=== PATIENT | female | born 2000 | race Caucasian/White ===

== ENCOUNTER 2020-04-26 15:24 | Emergency (ER) | payer OTHER ==
[~2020-04-26] VITALS: Ht 152.4 cm; Wt 83.6 kg
[2020-04-26] MEDS ORDERED: METH1CAP4 PO (15:35)
[2020-04-26] MEDS ORDERED: GUAN1TAB16 PO (15:35)
[2020-04-26] MEDS ORDERED: FLUO10CA16 PO (15:38)
[2020-04-26] MEDS ORDERED: [UNRECOGNIZED DRUG - CODE] PO (15:38)
[2020-04-26] MEDS ORDERED: GUAN1TAB19 PO (15:38)
[2020-04-26] MEDS ORDERED: LEXA1TAB2 PO (15:38)
[2020-04-26] MEDS ORDERED: ACETAMINOPHEN 500 MG TAB PO ONE (16:35)
[2020-04-26] MEDS ORDERED: DICYCLOMINE 10 MG CAP PO ONE (16:35)
[2020-04-26 16:57] LABS: BASO # 0.1 10^3/uL (0.0-0.2); BASO % 0.7 % (0.0-1.0); EOS # 0.1 10^3/uL (0.0-0.5); EOS % 0.9 % (0.0-3.0); HEMATOCRIT 45.7 % (36.0-47.0); HEMOGLOBIN 14.4 g/dl (12.0-15.5); LYMPH # 1.8 10^3/uL (1.5-5.0); LYMPH % 20.4 % (24.0-44.0); MEAN CORPUSCULAR HEMOGLOBIN 28.8 pg (27.0-33.0); MEAN CORPUSCULAR HGB CONC 31.5 g/dl (32.0-36.5); MEAN CORPUSCULAR VOLUME 91.4 fl (80.0-96.0); MONO # 0.6 10^3/uL (0.0-0.8); NEUTROPHILS # 6.4 10^3/uL (1.5-8.5); NEUTROPHILS % 70.6 % (36.0-66.0); PLATELET COUNT, AUTOMATED 418 10^3/uL (150-450)
--- NOTE | 2020-04-26 17:07 | REPVR ---
PROCEDURE INFORMATION: Exam: US Nonobstetric Pelvis; Complete Exam date and time: 04/26/2020 4:52 PM Age: 19 years old Clinical indication: Pelvic pain; Additional info: No tv pls, lower abd pain x 1wk TECHNIQUE: Imaging protocol: Transabdominal pelvic nonobstetric ultrasound. Complete exam. Real time ultrasound with image documentation. COMPARISON: No relevant prior studies available. FINDINGS: Uterus/cervix: 7.5 x 3.4 x 4.7 cm. Normal endometrial thickness, measuring approximately 6 mm. Right adnexa: Ovary obscured by overlying bowel gas. No adnexal mass. Left adnexa: Ovary obscured by overlying bowel gas. No adnexal mass. Intraperitoneal space: No intraperitoneal fluid. Urinary bladder: Normal. IMPRESSION: Limited examination due to obscuration of the ovaries by overlying bowel gas. Electronically signed by: Sagar Cardona On 04/26/2020 17:07:39 PM
[2020-04-26 17:18] LABS: ALBUMIN 3.7 GM/DL (3.2-5.2); ALT/SGPT 193 U/L (12-78); BILIRUBIN,DIRECT < 0.1 MG/DL (0.0-0.2); BILIRUBIN,TOTAL 0.2 MG/DL (0.2-1.0); LIPASE 31 U/L (73-393); TOTAL PROTEIN 7.6 GM/DL (6.4-8.2)
--- NOTE | 2020-04-26 18:01 | REP ---
INDICATION: lower abd pain x 1 wk COMPARISON: None. TECHNIQUE: Upright view of the chest with supine and upright views of the abdomen and pelvis. FINDINGS: Frontal upright view of the chest demonstrates no acute cardiopulmonary process or free air below the diaphragm to suspect pneumoperitoneum. Supine and upright views of the abdomen and pelvis demonstrate nonspecific bowel gas pattern without obstruction or perforation. Mild fecal stasis cannot be excluded and should be correlated with physical examination and history. No organomegaly. No abnormal calcifications. Skeletal structures normal for age. IMPRESSION: Nonspecific bowel gas pattern. <Electronically signed by Tommie Sanchez > 04/26/20 0729
[2020-04-26] MEDS ORDERED: SIME180C PO (18:40)
[2020-04-26 19:04] VITALS: BP 113/65
[2020-04-26 19:29] LABS: HEPATITIS B SURFACE ANTIGEN NEGATIVE (NEGATIVE)
[2020-04-26 19:56] LABS: HEPATITIS C VIRUS ABY INDEX < 0.0 INDEX (<0.8)
[2020-04-26 19:57] LABS: HEPATITIS B CORE ANTIBODY IGM NEGATIVE (NEGATIVE)
[2020-04-26 19:59] LABS: HEPATITIS A ANTIBODY IGM NEGATIVE (NEGATIVE)
== END 2020-04-26 19:07 | disposition home or self-care (01) ==
LOC: M ED 15:24
DX: R10.30 Lower abdominal pain, unspecified (principal); R79.89 Other specified abnormal findings of blood chemistry; R14.1 Gas pain; F41.9 Anxiety disorder, unspecified; Z91.030 Bee allergy status

== ENCOUNTER 2020-04-28 12:53 | Emergency (ER) | payer OTHER ==
[~2020-04-28] VITALS: Ht 152.4 cm; Wt 82.8 kg
[~2020-04-28 12:53] MED LIST: FLUO10CA16 PO; GUAN1TAB16 PO; GUAN1TAB19 PO; LEXA1TAB2 PO; METH1CAP4 PO; SIME180C PO; [UNRECOGNIZED DRUG - CODE] PO
[2020-04-28] MEDS ORDERED: DEXM1CAP16 PO (13:02)
[2020-04-28] MEDS ORDERED: NS 1,000 ML IV ONE (13:25)
[2020-04-28 14:05] LABS: BASO % 0.4 % (0.0-1.0); EOS # 0.1 10^3/uL (0.0-0.5); EOS % 1.1 % (0.0-3.0); HEMATOCRIT 44.5 % (36.0-47.0); HEMOGLOBIN 14.2 g/dl (12.0-15.5); LYMPH # 1.7 10^3/uL (1.5-5.0); LYMPH % 17.6 % (24.0-44.0); MEAN CORPUSCULAR HGB CONC 31.9 g/dl (32.0-36.5); MONO # 0.5 10^3/uL (0.0-0.8); MONO % 5.2 % (2.0-8.0); NEUTROPHILS # 7.3 10^3/uL (1.5-8.5); NEUTROPHILS % 75.3 % (36.0-66.0); PLATELET COUNT, AUTOMATED 398 10^3/uL (150-450); RED BLOOD COUNT 4.89 10^6/uL (4.00-5.40); WHITE BLOOD COUNT 9.6 10^3/uL (4.0-10.0)
[2020-04-28] MEDS ORDERED: ISOVUE-370 76% 100ML VIAL As Ordered ONE (14:24)
[2020-04-28 14:26] LABS: ALBUMIN 3.8 GM/DL (3.2-5.2); ALT/SGPT 173 U/L (12-78); BILIRUBIN,DIRECT < 0.1 MG/DL (0.0-0.2); BILIRUBIN,TOTAL 0.3 MG/DL (0.2-1.0); LIPASE 43 U/L (73-393); TOTAL PROTEIN 7.8 GM/DL (6.4-8.2)
--- NOTE | 2020-04-28 14:50 | REP ---
INDICATION: lower abd pain. COMPARISON: None TECHNIQUE: Axial contrast-enhanced images from the lung bases to the pubic symphysis using oral and 100 cc Isovue 370 intravenous contrast material. Coronal and sagittal reformations obtained. This CT examination was performed using the following dose reduction techniques: Automated exposure control, adjustment of mA and/or kv according to the patient's size, and the use of iterative reconstruction technique. FINDINGS: Lung bases are clear. Diffuse fatty infiltration to the liver noted without focal hepatic lesion. The spleen, pancreas, gallbladder, bilateral adrenal glands and kidneys are normal. The enteric system including stomach, small, and large bowel appears normal. No evidence for obstruction or acute inflammatory process. Normal terminal ileum and appendix are identified in the right lower quadrant. Small fat containing periumbilical hernia noted. Pelvis demonstrates normal bladder and age-appropriate uterus/adnexa. No ascites. No free air. No intraperitoneal or retroperitoneal adenopathy. Abdominal aorta and vasculature appear normal. Musculoskeletal structures are intact and without acute osseous abnormality. IMPRESSION: Hepatosteatosis. Otherwise normal contrast-enhanced CT of the abdomen and pelvis. <Electronically signed by Tommie Sanchez > 04/28/20 0721
[2020-04-28 16:49] VITALS: BP 120/72
--- NOTE | 2020-04-28 17:22 | ED PDOC ---
Post-Departure Follow-Up ct abd/p faxed to rajwinder malik for fu Carrie Larson MD Apr 28, 2020 17:22
== END 2020-04-28 16:52 | disposition home or self-care (01) ==
LOC: M ED 12:53
DX: K76.0 Fatty (change of) liver, not elsewhere classified (principal); E66.9 Obesity, unspecified; Z79.899 Other long term (current) drug therapy; Z91.030 Bee allergy status
CPT/HCPCS: 74177; 80047; 80076; 81001; 83690; 84702; 85025; 96360; 99284; Q9967

== ENCOUNTER 2020-06-03 23:09 | Emergency (ER) | payer OTHER ==
[~2020-06-03] VITALS: Ht 152.4 cm; Wt 79.0 kg
[~2020-06-03 23:09] MED LIST changes: +DEXM1CAP16 PO; -SIME180C PO; +SIME180C25 PO
[2020-06-04 01:31] LABS: HEMATOCRIT 45.8 % (36.0-47.0); HEMOGLOBIN 14.8 g/dl (12.0-15.5); MEAN CORPUSCULAR HEMOGLOBIN 29.7 pg (27.0-33.0); MEAN CORPUSCULAR HGB CONC 32.3 g/dl (32.0-36.5); MEAN CORPUSCULAR VOLUME 91.8 fl (80.0-96.0); PLATELET COUNT, AUTOMATED 413 10^3/uL (150-450); RED BLOOD COUNT 4.99 10^6/uL (4.00-5.40); WHITE BLOOD COUNT 8.7 10^3/uL (4.0-10.0)
[2020-06-04 02:16] LABS: ALBUMIN 3.8 GM/DL (3.2-5.2); ALT/SGPT 126 U/L (12-78); BILIRUBIN,TOTAL 0.5 MG/DL (0.2-1.0); BLOOD UREA NITROGEN 8 MG/DL (7-18); CALCIUM LEVEL 9.2 MG/DL (8.5-10.1); CARBON DIOXIDE LEVEL 28 MEQ/L (21-32); CHLORIDE LEVEL 107 MEQ/L (98-107); CREATININE FOR GFR 0.84 MG/DL (0.55-1.30); GLUCOSE, FASTING 93 MG/DL (70-100); POTASSIUM SERUM 4.8 MEQ/L (3.5-5.1); SODIUM LEVEL 141 MEQ/L (136-145); TOTAL PROTEIN 7.6 GM/DL (6.4-8.2)
[2020-06-04 02:31] VITALS: BP 112/69
== END 2020-06-04 02:33 | disposition home or self-care (01) ==
LOC: M ED 23:09
DX: R51.9 Headache, unspecified (principal); K76.0 Fatty (change of) liver, not elsewhere classified; R94.5 Abnormal results of liver function studies; Z79.899 Other long term (current) drug therapy; Z91.030 Bee allergy status

== ENCOUNTER 2022-05-02 11:56 | Emergency (ER) | payer OTHER ==
[~2022-05-02] VITALS: Ht 152.4 cm; Wt 97.8 kg
[~2022-05-02 11:56] MED LIST changes: -FLUO10CA16 PO; +FLUO10CA18 PO; +[UNRECOGNIZED DRUG - CODE] PO; -[UNRECOGNIZED DRUG - CODE] PO
[2022-05-02] MEDS ORDERED: ABIL1TAB13 PO (12:02)
[2022-05-02] MEDS ORDERED: ADDE20CA3 PO ×3 (12:02→15:01)
[2022-05-02 14:18] VITALS: BP 120/62
== END 2022-05-02 14:20 | disposition home or self-care (01) ==
LOC: M ED 11:56
DX: Z76.0 Encounter for issue of repeat prescription (principal); F90.9 Attention-deficit hyperactivity disorder, unspecified type; Z79.899 Other long term (current) drug therapy; Z91.030 Bee allergy status

== ENCOUNTER 2022-07-11 18:45 | Emergency (ER) | payer OTHER ==
[~2022-07-11] VITALS: Ht 152.4 cm; Wt 88.2 kg
[~2022-07-11 18:45] MED LIST changes: +ABIL1TAB13 PO; +ADDE20CA3 PO
[2022-07-11] MEDS ORDERED: ALBUTEROL SULFATE 2.5MG/0.5ML INH NEB SOLN NEB ONE (19:35)
[2022-07-11] MEDS ORDERED: predniSONE 20 MG TAB PO ONE (19:35)
[2022-07-11 20:40] LABS: RSV AMPLIFICATION NEGATIVE (NEGATIVE)
[2022-07-11] MEDS ORDERED: ALBU6.7H6 INH (21:14)
[2022-07-11] MEDS ORDERED: PRED20TA PO (21:14)
[2022-07-11 21:29] VITALS: BP 113/73
== END 2022-07-11 21:30 | disposition home or self-care (01) ==
LOC: M ED 18:45
DX: J45.901 Unspecified asthma with (acute) exacerbation (principal); F90.9 Attention-deficit hyperactivity disorder, unspecified type; Z79.899 Other long term (current) drug therapy; Z91.030 Bee allergy status
CPT/HCPCS: 71046; 87631; 94640; 99283; J7512

== ENCOUNTER 2022-07-14 20:37 | Emergency (ER) | payer OTHER ==
[~2022-07-14] VITALS: Ht 152.4 cm; Wt 89.9 kg
[~2022-07-14 20:37] MED LIST changes: +ALBU6.7H6 INH; +PRED20TA PO
[2022-07-15] MEDS ORDERED: IPRATROPIUM 0.5MG/ALBUTEROL 2.5MG INH SOL UD 3ML (DUONEB) NEB ONE (00:55)
[2022-07-15 02:36] VITALS: BP 129/74
== END 2022-07-15 02:44 | disposition home or self-care (01) ==
LOC: M ED 20:37
DX: J45.901 Unspecified asthma with (acute) exacerbation (principal); F90.9 Attention-deficit hyperactivity disorder, unspecified type; E66.9 Obesity, unspecified; Z79.899 Other long term (current) drug therapy; Z91.030 Bee allergy status

== ENCOUNTER 2022-08-18 09:00 | Emergency (ER) | payer OTHER ==
[~2022-08-18] VITALS: Ht 152.4 cm; Wt 91.3 kg
[2022-08-18] MEDS ORDERED: CYCL-707 PO (11:40)
[2022-08-18] MEDS ORDERED: NAPR-837 PO (11:40)
[2022-08-18 11:48] VITALS: BP 126/72; TEMP 98.7; O2SAT 100
== END 2022-08-18 11:49 | disposition home or self-care (01) ==
LOC: M ED 09:00
DX: M62.838 Other muscle spasm (principal); Z79.899 Other long term (current) drug therapy; Z91.030 Bee allergy status